=== PATIENT | female | born 1985 | race Caucasian/White ===

== ENCOUNTER 2020-04-06 09:25 | Emergency (ER) | payer OTHER ==
[~2020-04-06] VITALS: Ht 157.5 cm; Wt 79.4 kg
[~2020-04-06 09:25] MED LIST: ALBU90OI INH; ALBU90OI6 INH; ALBU90OI61 INH; ANAS1 PO; ARIP10 PO; Acidophilus La1 EACH PO; BENADRYL25 MG PO; BENZ100A PO; BUSP5 PO; CITA20 PO; CLIN150 PO; CLIN300 PO; DICL25ER PO; Depo-Testo100 MG/1 M IM; Desyrel50 MG PO; FLUO10 PO; FLUT44OIA IH; HYDACE5 PO; HYDPAM25 PO; HYOS.125 SL; IBUP600 PO; IBUP800 PO; LEVFLO500 PO; NYST100SU MT; Neurontin 100100 MG PO; OMEP20ER PO; OXYACE5T PO; PANT40 PO; PRAZ1 PO; PRAZ2 PO; PROG100 PO; PROP10 PO; Percocet 5-3251 EACH PO; QUET100 PO; RXOXYACE PO; SALM50IP INH; SERT25 PO; SERT50 PO; TRAM50 PO; TRAZ50 PO; Tri-Sprintec1 EACH PO
[2020-04-06] MEDS ORDERED: HYDHCL25 PO (10:57)
[2020-04-06] MEDS ORDERED: Bentyl10 MG PO (10:58)
[2020-04-06] MEDS ORDERED: Indomethacin25 MG PO (11:01)
[2020-04-06] MEDS ORDERED: Monodox100 MG PO (11:09)
== END 2020-04-06 11:52 | disposition home or self-care (01) ==
LOC: ER 09:25
DX: N76.2 Acute vulvitis (principal); I10 Essential (primary) hypertension; J44.9 Chronic obstructive pulmonary disease, unspecified; F31.9 Bipolar disorder, unspecified; F41.9 Anxiety disorder, unspecified; F17.290 Nicotine dependence, other tobacco product, uncomplicated; Z79.899 Other long term (current) drug therapy; Z88.0 Allergy status to penicillin; Z88.2 Allergy status to sulfonamides; Z88.1 Allergy status to other antibiotic agents; Z88.5 Allergy status to narcotic agent; Z88.6 Allergy status to analgesic agent; Z91.041 Radiographic dye allergy status; Z91.09 Other allergy status, other than to drugs and biological substances
CPT/HCPCS: 99283

== ENCOUNTER → 2023-08-21 | Outpatient (CLI) | payer OTHER ==
[~2023-08-21] MED LIST changes: +Bentyl10 MG PO; +HYDHCL25 PO; +Indomethacin25 MG PO; +Monodox100 MG PO
[2023-09-18 09:45] LABS: C DIFFICILE DNA NEGATIVE (Negative)
== END | disposition home or self-care (01) ==
LOC: LAB SHORT 21:18 → LAB 21:18
PROVIDERS: Nurse Practitioner Family
DX: R19.5 Other fecal abnormalities (principal)
CPT/HCPCS: 87493

== ENCOUNTER → 2023-11-12 | Outpatient (CLI) | payer OTHER ==
[2023-11-15 10:15] LABS: HIV 1,2 COMBO ANTIGEN/ANTIBODY Negative (Negative)
[2023-11-15 11:18] LABS: HEPATITIS B SURFACE ANTIBODY 150.83 IU/L
[2023-11-15 15:42] LABS: APTIMA MEDIA TYPE Unisex Swab; C. TRACHOMATIS BY TMA Negative (Negative); N. GONORRHOEAE BY TMA Negative (Negative); SPECIMEN SOURCE Cervical
[2023-11-16 02:20] LABS: HSV 1 SUBTYPE BY PCR Not Detected; HSV 2 SUBTYPE BY PCR Not Detected; HSV SUBTYPE SOURCE Plasma
[2023-11-18 02:58] LABS: TESTOSTERONE, FREE BY DIALYSIS 52.2 pg/mL
[2023-11-23 03:49] LABS: HPV HIGH RISK BY TMA Not Detected; HPV SOURCE Cervical
== END ==
LOC: LAB SHORT 18:32 → LAB 18:32
PROVIDERS: Nurse Practitioner Family
DX: Z11.3 Encounter for screening for infections with a predominantly sexual mode of transmission (principal); Z01.419 Encounter for gynecological examination (general) (routine) without abnormal findings; F64.9 Gender identity disorder, unspecified
CPT/HCPCS: 84402; 84403; 86592; 87389; 87491; 87529; 87591; 87624; G0123

== ENCOUNTER → 2025-03-30 | Outpatient (CLI) | payer OTHER ==
[2025-04-01 18:02] LABS: HEPATITIS C AB CIA INTERP Negative (Negative); HEPATITIS C ANTIBODY CIA INDEX 0.02 IV
[2025-04-05 09:46] LABS: TESTOSTERONE, FREE BY DIALYSIS 11.1 pg/mL; TESTOSTERONE, TOTAL MASS SPEC 95.5 ng/dL
== END ==
LOC: LAB 19:05 → LAB SHORT 19:05
PROVIDERS: Nurse Practitioner Family
DX: Z11.59 Encounter for screening for other viral diseases (principal); F64.9 Gender identity disorder, unspecified
CPT/HCPCS: 84402; 84403; 86803